=== PATIENT | male | born 1970 | race African-American/Black ===

== ENCOUNTER 2021-03-28 08:37 | Inpatient (IN) ==
[2021-03-28] MEDS ORDERED: SODIUM CHLORIDE 0.9% 1,000 ML IV STA ×2 (10:42→13:47)
[2021-03-28] MEDS ORDERED: cefTRIAXone 1,000 MG in SODIUM CHLORIDE 0.9% 100 ML IV STA (11:40)
[2021-03-28 11:47] LABS: Basophils % 0.2 % (0.0-0.8); Hematocrit 38.5 VOL% (42.0-52.0); Hemoglobin 12.7 GM/DL (14.0-18.0); Immature Granulocytes % 0.6 %; Immature Granulocytes Absolute 0.07 #; Lymphocytes # 1.5 10*3/uL (1.4-4.0); Lymphocytes % 12.7 % (21.2-54.2); Mean Corpuscular Volume 79.1 FL (87-102); Mean Platelet Volume 10.6 FL (9.6-12.0); Monocytes % 9.2 % (1.7-12.7); Neutrophils % 77.3 % (38.7-73.9); Platelet Count 212 T/CUMM (130-400); Red Blood Count 4.87 MC/CUMM (3.8-5.5); Red Cell Distribution Width 14.6 % (9.3-17.3); White Blood Count 11.5 T/CUMM (4-12)
[2021-03-28 12:09] LABS: Albumin 2.5 G/DL (3.4-5.0); Bilirubin,Total 0.6 MG/DL (0.20-1.00); Calcium 9.2 MG/DL (8.5-10.1); Osmolality,Calculated 291.2 MOS/KG (273-304); Total Protein 8.4 G/DL (6.4-8.2)
[2021-03-28 12:17] LABS: Lymphocytes 13 % (20-55); Segmented Neutrophils 78 % (50-85); Total Cells Counted 100
[2021-03-28 12:18] LABS: Hypochromia 1+
[2021-03-28 12:19] LABS: Platelet Estimate Normal
[2021-03-28 12:21] LABS: Bacteria,Urine Moderate /HPF (Few); Bilirubin,Urine Negative (Negative); Blood, Urine Small mg/dL (Negative); Glucose,Urine (UA) Negative (Negative); Ketones,Urine 5 mg/dL (Negative); Nitrite,Urine Negative (Negative); Protein,Urine 100 MG/DL; Urine Appearance CLOUDY (Clear); Urine Color Yellow (Yellow); Urine Specific Gravity 1.012 (1.001-1.035); Urine Urobilinogen < 2.0 EU/DL (<2.0)
[2021-03-28] MEDS ORDERED: ONDANSETRON 4 MG/2 ML VIAL IV PRN (15:03)
[2021-03-28] MEDS ORDERED: CALCIUM CARBONATE CHEW 500 MG TABLET PO PRN (15:03)
[2021-03-28] MEDS ORDERED: DOCUSATE SODIUM 100 MG CAPSULE PO PRN (15:03)
[2021-03-28] MEDS ORDERED: GLUCAGON 1 MG VIAL IM PRN (15:03)
[2021-03-28] MEDS ORDERED: DEXTROSE 10% 250 ML BAG IV PRN (15:03)
[2021-03-28] MEDS: LACTATED RINGERS 1,000 ML IV SCH (16:16)
[2021-03-28] MEDS: POTASSIUM CHLORIDE 20 MEQ TABLET PO PRN ×4 (17:01→23:27)
[2021-03-28] MEDS: ACETAMINOPHEN 500 MG TABLET PO PRN (19:36)
[2021-03-28] MEDS: ENOXAPARIN 40 MG/0.4 ML SYRINGE SUBCUT SCH (21:57)
[2021-03-29] MEDS: LACTATED RINGERS 1,000 ML IV SCH ×3 (02:35→15:47)
[2021-03-29] MEDS: ACETAMINOPHEN 500 MG TABLET PO PRN ×2 (04:32→21:18)
[2021-03-29 05:33] LABS: Basophils % 0.3 % (0.0-0.8); Eosinophils # 0.1 10*3/uL (0.0-0.87); Eosinophils % 0.4 % (0.00-10.9); Hematocrit 36.4 VOL% (42.0-52.0); Immature Granulocytes % 1.6 %; Immature Granulocytes Absolute 0.18 #; Lymphocytes # 0.9 10*3/uL (1.4-4.0); Lymphocytes % 7.7 % (21.2-54.2); Mean Platelet Volume 10.8 FL (9.6-12.0); Monocytes % 6.4 % (1.7-12.7); Neutrophils % 83.6 % (38.7-73.9); Platelet Count 210 T/CUMM (130-400); Red Blood Count 4.61 MC/CUMM (3.8-5.5); Red Cell Distribution Width 14.6 % (9.3-17.3); White Blood Count 11.5 T/CUMM (4-12)
[2021-03-29 05:50] LABS: Albumin 2.1 G/DL (3.4-5.0); Bilirubin,Total 1.1 MG/DL (0.20-1.00); Calcium 8.8 MG/DL (8.5-10.1); Osmolality,Calculated 292.5 MOS/KG (273-304); Potassium 3.7 MMOL/L (3.5-5.1); Total Protein 7.3 G/DL (6.4-8.2)
[2021-03-29 06:40] LABS: Band Neutrophils 2 % (0-10); Hypochromia 1+; Lymphocytes 9 % (20-55); Microcytosis 1+; Platelet Estimate Normal; Segmented Neutrophils 84 % (50-85); Total Cells Counted 100
[2021-03-29] MEDS: PANTOPRAZOLE 40 MG TABLET PO SCH (08:51)
[2021-03-29] MEDS ORDERED: PNEUMOCOCCAL VACCINE (13 VALENT) 0.5 ML SYRINGE IM ONE (09:00)
[2021-03-29] MEDS ORDERED: cefTRIAXone 1,000 MG in SODIUM CHLORIDE 0.9% 100 ML IV SCH (12:00)
[2021-03-29] MEDS: ENOXAPARIN 40 MG/0.4 ML SYRINGE SUBCUT SCH (21:18)
[2021-03-29] MEDS: MIDODRINE 5 MG TABLET PO SCH (21:18)
[2021-03-30] MEDS: LACTATED RINGERS 1,000 ML IV SCH ×4 (00:18→21:51)
[2021-03-30 06:48] LABS: Basophils # 0.1 10*3/uL (0.0-0.2); Basophils % 0.3 % (0.0-0.8); Eosinophils # 0.2 10*3/uL (0.0-0.87); Hematocrit 35.9 VOL% (42.0-52.0); Hemoglobin 11.8 GM/DL (14.0-18.0); Immature Granulocytes % 1.4 %; Immature Granulocytes Absolute 0.23 #; Lymphocytes # 1.2 10*3/uL (1.4-4.0); Lymphocytes % 7.6 % (21.2-54.2); Mean Corpuscular HGB Conc 32.9 GM/DL (32-36); Mean Corpuscular Volume 79.4 FL (87-102); Mean Platelet Volume 11.3 FL (9.6-12.0); Monocytes % 5.4 % (1.7-12.7); Neutrophils % 84.3 % (38.7-73.9); Platelet Count 214 T/CUMM (130-400); Red Blood Count 4.52 MC/CUMM (3.8-5.5); Red Cell Distribution Width 14.6 % (9.3-17.3); White Blood Count 16.2 T/CUMM (4-12)
[2021-03-30 07:10] LABS: Albumin 1.8 G/DL (3.4-5.0); Bilirubin,Total 0.9 MG/DL (0.20-1.00); Calcium 8.5 MG/DL (8.5-10.1); Osmolality,Calculated 289.4 MOS/KG (273-304); Potassium 3.2 MMOL/L (3.5-5.1); Total Protein 6.6 G/DL (6.4-8.2)
[2021-03-30 07:15] LABS: Band Neutrophils 5 % (0-10); Hypochromia 1+; Lymphocytes 10 % (20-55); Ovalocytes Slight; Segmented Neutrophils 81 % (50-85); Target Cells Slight; Total Cells Counted 100
[2021-03-30 07:16] LABS: Microcytosis 1+; Platelet Estimate Normal
[2021-03-30] MEDS ORDERED: Biktarvy PO SCH (09:00)
[2021-03-30] MEDS: PANTOPRAZOLE 40 MG TABLET PO SCH (09:09)
[2021-03-30] MEDS: MIDODRINE 5 MG TABLET PO SCH ×3 (09:09→21:52)
[2021-03-30] MEDS: ERTAPENEM 1,000 MG in SODIUM CHLORIDE 0.9% 100 ML IV SCH (12:12)
[2021-03-30] MEDS: Biktarvy PO SCH (14:02)
[2021-03-30] MEDS: ENOXAPARIN 40 MG/0.4 ML SYRINGE SUBCUT SCH (21:52)
[2021-03-31] MEDS: LACTATED RINGERS 1,000 ML IV SCH ×2 (01:23→05:18)
[2021-03-31 06:12] LABS: Albumin 1.6 G/DL (3.4-5.0); Bilirubin,Total 0.9 MG/DL (0.20-1.00); Calcium 8.6 MG/DL (8.5-10.1); Osmolality,Calculated 284.7 MOS/KG (273-304); Potassium 2.9 MMOL/L (3.5-5.1); Total Protein 6.3 G/DL (6.4-8.2)
[2021-03-31] MEDS: PANTOPRAZOLE 40 MG TABLET PO SCH (08:59)
[2021-03-31] MEDS: MIDODRINE 5 MG TABLET PO SCH ×3 (08:59→22:12)
[2021-03-31] MEDS: POTASSIUM CHLORIDE 20 MEQ TABLET PO PRN ×3 (11:36→15:43)
[2021-03-31] MEDS: ERTAPENEM 1,000 MG in SODIUM CHLORIDE 0.9% 100 ML IV SCH (11:36)
[2021-03-31] MEDS: Biktarvy PO SCH (13:34)
[2021-03-31] MEDS: SODIUM BICARB INJ 100 MEQ in STERILE WATER INJ 1,000 ML IV SCH (15:41)
[2021-03-31] MEDS: ENOXAPARIN 40 MG/0.4 ML SYRINGE SUBCUT SCH (22:12)
[2021-03-31] MEDS: POTASSIUM CHLORIDE 20 MEQ TABLET PO SCH (22:12)
[2021-04-01] MEDS: SODIUM BICARB INJ 100 MEQ in STERILE WATER INJ 1,000 ML IV SCH ×2 (02:44→14:52)
[2021-04-01] MEDS: LACTATED RINGERS 1,000 ML IV SCH (07:58)
[2021-04-01] MEDS: MIDODRINE 5 MG TABLET PO SCH ×2 (09:21→16:37)
[2021-04-01] MEDS: PANTOPRAZOLE 40 MG TABLET PO SCH (09:21)
[2021-04-01] MEDS: POTASSIUM CHLORIDE 20 MEQ TABLET PO SCH (09:21)
[2021-04-01] MEDS: ERTAPENEM 1,000 MG in SODIUM CHLORIDE 0.9% 100 ML IV SCH (14:32)
[2021-04-01] MEDS: Biktarvy PO SCH (14:34)
[2021-04-01 18:24] VITALS: BP 90/59
== END 2021-04-01 18:20 | disposition home or self-care (01) | DRG 690 ==
LOC: EDUNIT# → EDBD → N.ED 08:37 → SUATTDRO 15:03 → N.EDINP 15:03 → N.5E 20:01
PROVIDERS: ADMIT Internal Medicine; ATTEND Hospitalist